=== PATIENT | female | born 1935 | race Caucasian/White ===

== ENCOUNTER 2018-07-05 13:06 | Emergency (ER) | payer MEDICARE ==
[~2018-07-05 13:06] MED LIST: ASPI-1441 PO; CALC-649 PO; CYAN50TA3 PO; IBUP-1487 PO; IRO150 PO; LEVO75TA68 PO; LOR5/325 PO; MULT1CAP41 PO; OMEG-96 PO; ROS10 PO; [UNRECOGNIZED DRUG - CODE] MC; [UNRECOGNIZED DRUG - CODE] PO
--- NOTE | 2018-07-05 13:12 | ER Report ---
History and Physical Time Seen By MD: 13:12 HPI/ROS CHIEF COMPLAINT: Shortness of breath, dizziness and vomiting HISTORY OF PRESENT ILLNESS: This is an 82-year-old female presents to the emergency department via [facility] for dizziness, shortness of breath and vomiting. Probably the patient's had some dizziness and vomiting early this morning, did go to the [facility] she had some shortness of breath apparently at the clinic as well they did some basic blood work, troponin which was negative, EKG dated the d-dimer as well, and according to the clinic it was positive. She was also given 325 mg aspirin. EMS was contacted and since going the patient was transported to our hospital for further evaluation. Patient arrives alert and oriented, denies shortness of breath, no chest pain, no dizziness, no nausea or vomiting. The patient's was on a cruise has been back in the [place] for approximately 6-7 weeks. She denies fevers or chills. She does not recall a past history of blood clots. No chest pain. No fevers. No rashes. No headaches. REVIEW OF SYSTEMS: Constitutional: No fever, no chills. Eyes: No discharge. ENT: No sore throat. Cardiovascular: No chest pain, no palpitations. Respiratory: As above. Gastrointestinal: As above. Genitourinary: No hematuria. Musculoskeletal: No back pain. Skin: No rashes. Neurological: As above. Allergies: Coded Allergies: No Known Drug Allergies (Verified , 06/14/08) Home Meds Reported Medications Tramadol Hcl (TRAMADOL HCL) 50 Mg Tablet, 50-100 MG PO Q4-6H, TAB 07/05/18 Ropinirole Hcl (ROPINIROLE HCL) 0.5 Mg Tablet, 0.5 MG PO QHS 07/05/18 Pravastatin Sodium (PRAVACHOL) 20 Mg Tablet, 20 MG PO QDAY, TAB 07/05/18 Melatonin/Pyridoxine Hcl (B6) (MELATONIN 1 MG TABLET) 1 Each Tablet, 1 EACH PO QHS 07/05/18 Aspirin (Aspirin Ec) 81 Mg Tablet.dr, 81 MG PO DAILY, 0 Refills 07/08/08 Calcium Carbonate/Vitamin D3 (Calcium + D 600 Mg Tablet) 1 Tab Tablet, 1 TAB PO DAILY, 0 Refills 07/08/08 Fish Oil/[place]-3 Fatty Acids ([place] 3 Fish Oil 1,000 Mg Cap) 1 Cap Capsule, 1 CAP PO DAILY, 0 Refills 07/08/08 Levothyroxine Sodium (Levothyroxine Sodium) 75 Mcg Tablet, 88 MCG PO DAILY, 0 R efills 07/08/08 Discontinued Reported Medications Rosuvastatin Calcium (Crestor) 10 Mg Tab, 10 MG PO QHS, 0 Refills 07/08/08 Polysaccharide Iron Complex (Niferex) 150 Mg Cap, 150 MG PO BIDBS, 0 Refills 07/08/08 Cyanocobalamin (Vitamin B12) 50 Mcg Tablet, 50 MCG PO DAILY, 0 Refills 07/08/08 Past Medical/Surgical History The patient has a past medical and surgical history of irregular heartbeat, pneumonia, osteopenia, arthritis, fractures, chronic C-spine pain, bunionectomies, right shoulder surgery, left wrist surgery, cataract removal. Reviewed Nurses Notes: Yes Hx Smoking: Yes (QUIT 25 YRS AGO, SMOKED 30 YRS 1PPD) Constitutional Vital Sign - Last 24 Hours 07/05/18 07/05/18 07/05/18 07/05/18 13:06 13:07 13:10 13:36 Temp 97.6 Pulse ??? 57 52 Resp 20 17 B/P (MAP) 176/85 (115) 176/85 Pulse Ox 97 94 O2 Delivery Room Air 07/05/18 07/05/18 07/05/18 07/05/18 13:47 14:06 14:29 15:00 Pulse 55 51 Resp 15 15 B/P (MAP) 130/70 (90) 141/66 (91) Pulse Ox 97 99 O2 Flow Rate 2.0 07/05/18 15:05 Pulse 52 Resp 10 Pulse Ox 98 Physical Exam General Appearance: The patient is alert, has no immediate need for airway protection and no signs of toxicity. Eyes: Pupils equal and round no pallor or injection. ENT, Mouth: Mucous membranes are moist. Respiratory: There are no retractions, lungs are clear to auscultation. Cardiovascular: Regular rate and rhythm, no murmurs, clicks or rubs. Gastrointestinal: Abdomen is soft and non tender, no masses, bowel sounds normal. Neurological: Alert and oriented 4. Moving all extremities. Following all commands. No focal neurologic deficits. Skin: Warm and dry, no rashes. Musculoskeletal: Neck is supple non tender. Extremities are nontender, nonswollen and have full range of motion. DIFFERENTIAL DIAGNOSIS: After history and physical exam differential diagnosis was considered for shortness of breath including but not limited to pulmonary infectious process, COPD, asthma, pulmonary embolus and congestive heart failure. Medical Decision Making Data Points Result Diagram: 07/05/18 1334 07/05/18 1334 Laboratory Hematology Test 07/05/18 13:34 Red Blood Count 4.93 M/uL (4.17-5.56) Mean Corpuscular Volume 79.9 fL (80.0-96.0) Mean Corpuscular Hemoglobin 25.4 pg (26.0-33.0) Mean Corpuscular Hemoglobin Concent 31.9 g/dL (32.0-36.0) Red Cell Distribution Width 16.2 % (11.5-14.5) Mean Platelet Volume 8.6 fL (7.2-11.1) Neutrophils (%) (Auto) 80.7 % (39.4-72.5) Lymphocytes (%) (Auto) 13.4 % (17.6-49.6) Monocytes (%) (Auto) 4.8 % (4.1-12.4) Eosinophils (%) (Auto) 0.6 % (0.4-6.7) Basophils (%) (Auto) 0.5 % (0.3-1.4) Nucleated RBC Relative Count (auto) 0.1 /100WBC Neutrophils # (Auto) 7.1 K/uL (2.0-7.4) Lymphocytes # (Auto) 1.2 K/uL (1.3-3.6) Monocytes # (Auto) 0.4 K/uL (0.3-1.0) Eosinophils # (Auto) 0.0 K/uL (0.0-0.5) Basophils # (Auto) 0.0 K/uL (0.0-0.1) Nucleated RBC Absolute Count (auto) 0.01 K/uL Peripheral Blood Smear No Y/N D-Dimer Quantitative (PE/DVT) 0.90 ug/ml (0-0.50) Sodium Level 137 mmol/L (137-145) Potassium Level 4.3 mmol/L (3.5-5.0) Chloride Level 101 mmol/L (98-107) Carbon Dioxide Level 25 mmol/L (22-31) Blood Urea Nitrogen 14 mg/dl (7-18) Creatinine 0.90 mg/dl (0.52-1.04) Glomerular Filtration Rate Calc 59.8 Random Glucose 87 mg/dl (75-110) Calcium Level 9.6 mg/dl (8.4-10.2) Total Bilirubin 0.6 mg/dl (0.2-1.3) Aspartate Amino Transf (AST/SGOT) 25 U/L (0-35) Alanine Aminotransferase (ALT/SGPT) 27 U/L (0-56) Alkaline Phosphatase 86 U/L (0-126) Troponin I < 0.012 ng/ml Total Protein 7.4 g/dl (6.3-8.2) Albumin 4.1 g/dl (3.5-5.0) Chemistry Test 07/05/18 13:34 White Blood Count 8.8 k/uL (4.5-11.0) Red Blood Count 4.93 M/uL (4.17-5.56) Hemoglobin 12.6 g/dL (12.0-16.0) Hematocrit 39.4 % (34.0-47.0) Mean Corpuscular Volume 79.9 fL (80.0-96.0) Mean Corpuscular Hemoglobin 25.4 pg (26.0-33.0) Mean Corpuscular Hemoglobin Concent 31.9 g/dL (32.0-36.0) Red Cell Distribution Width 16.2 % (11.5-14.5) Platelet Count 366 K/uL (150-450) Mean Platelet Volume 8.6 fL (7.2-11.1) Neutrophils (%) (Auto) 80.7 % (39.4-72.5) Lymphocytes (%) (Auto) 13.4 % (17.6-49.6) Monocytes (%) (Auto) 4.8 % (4.1-12.4) Eosinophils (%) (Auto) 0.6 % (0.4-6.7) Basophils (%) (Auto) 0.5 % (0.3-1.4) Nucleated RBC Relative Count (auto) 0.1 /100WBC Neutrophils # (Auto) 7.1 K/uL (2.0-7.4) Lymphocytes # (Auto) 1.2 K/uL (1.3-3.6) Monocytes # (Auto) 0.4 K/uL (0.3-1.0) Eosinophils # (Auto) 0.0 K/uL (0.0-0.5) Basophils # (Auto) 0.0 K/uL (0.0-0.1) Nucleated RBC Absolute Count (auto) 0.01 K/uL Peripheral Blood Smear No Y/N D-Dimer Quantitative (PE/DVT) 0.90 ug/ml (0-0.50) Glomerular Filtration Rate Calc 59.8 Calcium Level 9.6 mg/dl (8.4-10.2) Total Bilirubin 0.6 mg/dl (0.2-1.3) Aspartate Amino Transf (AST/SGOT) 25 U/L (0-35) Alanine Aminotransferase (ALT/SGPT) 27 U/L (0-56) Alkaline Phosphatase 86 U/L (0-126) Troponin I < 0.012 ng/ml Total Protein 7.4 g/dl (6.3-8.2) Albumin 4.1 g/dl (3.5-5.0) Coagulation Test 07/05/18 13:34 D-Dimer Quantitative (PE/DVT) 0.90 ug/ml EKG/Imaging EKG Interpretation 12 lead EKG: Time of EKG 1325. Rhythm: Sinus bradycardia, with 1st degree AV block, occasional PAC. [place]: normal QRS: normal ST segments: No ST depression or elevation identified. Inverted T-wave in V5 and V6. Imaging Location: [facility] Patient: Imelda Matthew : 1935 Visit/Account:[id number] [facility]: [facility] EXAMINATION: CTA of the chest with IV contrast HISTORY: Syncope. TECHNIQUE: Pulmonary embolus protocol - Thin axial CT images of the chest were obtained with IV contrast during maximal pulmonary arterial opacification. Reconstruction of the source data includes multiplanar 2D coronal and sagittal reconstructed images, and 3D coronal and sagittal MIP images. Water Quality Technician images have been stored on PACS. One of the following dose optimization techniques was utilized in the performance of this exam: Automated exposure control; adjustment of the mA and/or kV according to the patient's size; or use of an iterative reconstruction technique. Specific details can be referenced in the facility's radiology CT exam operational policy. Contrast: 75 mL of IV Isovue-370. COMPARISON: 06/14/2008. FINDINGS: Pulmonary arteries: The pulmonary arteries are well opacified, without suspicious filling defect. Heart, aorta, and great vessels: Normal caliber thoracic aorta. Vascular calcifications, including coronary artery calcifications. Normal heart size. No pericardial effusion. Lungs and pleura: Small calcified granulomas in both lungs. Mild emphysematous changes in the upper lungs, with mild subpleural fibrosis. Slight scarring or atelectasis in the lung bases. No suspicious focal consolidation. No pleural effusion or pneumothorax. The central airways are patent. Mediastinum and destini: Negative. Visualized upper abdomen: Unremarkable. Chest wall: Negative. Bones: Negative. IMPRESSION: 1. No evidence of pulmonary embolism. 2. No other acute findings in the chest. 3. Mild pulmonary emphysema. No suspicious focal consolidation. Report Dictated By: Adis Wilkerson MD at 07/05/2018 3:03 PM Report E-Signed By: Adis Wilkerson MD at 07/05/2018 3:15 PM [id number] ED Course/Re-evaluation Clinical Indication for ER IV: Hydration, IV Access ED Course The patient was admitted to room. A history physical obtained. Differential diagnoses were considered. An IV was started via EMS. Patient had normal saline and route from [facility],. A repeat CBC, CMP, d-dimer and troponin were obtained. Negative troponin. CBC unremarkable. Positive d-dimer at 0.90. I did review these results with the patient and her daughter, I did tell them that as this is positive as she did have shortness of breath earlier this morning that we should proceed with a CT of the chest looking for an embolus, they are in agreement with this. CT of the chest was negative for pulmonary emboli. I did review these results with the patient and her family. Patient remained pain-free, denied shortness of breath, no dizziness even upon ambulation, no nausea or vomiting while in the emergency department. With no other concerning findings and negative study I did tell the patient will be would go home at this time. I did tell the patient that the vomiting and dizziness could be secondary to gastroenteritis, she agreed, instructed to drink plenty of fluids, get plenty of rest and return to the ER for any other concerns or worsening symptoms. Decision to Disposition Date: Jul 05, 2018 Decision to Disposition Time: 15:27 Depart Departure Latest Vital Signs Vital Signs Date Time Temp Pulse Resp B/P (MAP) Pulse Ox O2 Delivery O2 Flow Rate FiO2 07/05/18 15:05 52 10 98 07/05/18 15:00 141/66 (91) 07/05/18 13:47 2.0 07/05/18 13:10 97.6 Room Air Impression: Primary Impression: Dizziness Additional Impression: Vomiting Condition: Improved Disposition: HOME OR SELF-CARE Referrals: ANN MARIE SCHMITT MD (PCP) Patient Instructions: Acute Nausea and Vomiting (ED), Dizziness (ED) Additional Instructions: There is no evidence of a clot in your lungs today. No other concerning findings that would potentially from going home today. Please increase your water intake. Continue taking your regular medications. Get plenty of rest. Return to the emergency department for any acute concerns or worsening symptoms. Problem Qualifiers Additional Impression: Vomiting Vomiting type: unspecified Vomiting Intractability: non-intractable Nausea presence: unspecified Qualified Codes: R11.10 - Vomiting, unspecified SAVANNA CHINO PEANUT GRADER-BC Jul 05, 2018 13:12
[2018-07-05] MEDS ORDERED: PRAV20TA65 PO (13:22)
[2018-07-05] MEDS ORDERED: MELA1TAB24 PO (13:22)
[2018-07-05] MEDS ORDERED: TRAM-420 PO (13:22)
[2018-07-05] MEDS ORDERED: ROPI0.5T25 PO (13:22)
[2018-07-05] MEDS ORDERED: EMS NS 0.9%(*) 1000 ML BAG 1,000 ML IV ONE (13:30)
[2018-07-05 14:00] LABS: PLATELET COUNT, AUTOMATED 366 K/uL (150-450)
--- NOTE | 2018-07-05 14:02 | EKG ---
[place] [facility] [place] NAME: ASHLEY MIRANDA : [id number] MR: [id number] V: [id number] EXAM DATE: ORDERING PHYSICIAN: SAVANNA CHINO TECHNOLOGIST: Test Reason : Blood Pressure : / mmHG Vent. Rate : 054 BPM Atrial Rate : 054 BPM P-R Int : 218 ms QRS Dur : 086 ms QT Int : 440 ms P-R-T Axes : 049 -02 010 degrees QTc Int : 417 ms Sinus bradycardia with premature atrial complexes Otherwise normal ECG No previous ECGs available Confirmed by BLANCA BARRON ([id number]) on 07/05/2018 2:19:32 PM Referred By: Confirmed By:BLANCA BARRON
[2018-07-05] MEDS ORDERED: NS(*) 0.9% 50 ML BAG 50 ML ONE (14:37)
[2018-07-05] MEDS ORDERED: IOPAMIDOL 76% 75 ML INFUS BTL 75 ML ONE (14:37)
[2018-07-05 15:00] VITALS: BP 141/66
--- NOTE | 2018-07-05 15:20 | RADIOLOGY IMAGING REPORT ---
FACILITY: [facility] PATIENT NAME: Imelda Matthew : 1935 MR: [id number] V: [id number] EXAM DATE: ORDERING PHYSICIAN: SAVANNA CHINO TECHNOLOGIST: Location: [facility] [place] Patient: Imelda Matthew : 1935 Visit/Account:[id number] Date of [place]: 07/05/2018 EXAMINATION: CTA of the chest with IV contrast HISTORY: Syncope. TECHNIQUE: Pulmonary embolus protocol - Thin axial CT images of the chest were obtained with IV con trast during maximal pulmonary arterial opacification. Reconstruction of the source data includes mul tiplanar 2D coronal and sagittal reconstructed images, and 3D coronal and sagittal MIP images. Repres entative images have been stored on PACS. One of the following dose optimization techniques was utilized in the performance of this exam: Autom ated exposure control; adjustment of the mA and/or kV according to the patient's size; or use of an i terative reconstruction technique. Specific details can be referenced in the facility's radiology C T exam operational policy. Contrast: 75 mL of IV Isovue-370. COMPARISON: 06/14/2008. FINDINGS: Pulmonary arteries: The pulmonary arteries are well opacified, without suspicious filling defect. Heart, aorta, and great vessels: Normal caliber thoracic aorta. Vascular calcifications, including c oronary artery calcifications. Normal heart size. No pericardial effusion. Lungs and pleura: Small calcified granulomas in both lungs. Mild emphysematous changes in the upper lungs, with mild subpleural fibrosis. Slight scarring or atelectasis in the lung bases. No suspicious focal consolidation. No pleural effusion or pneumothorax. The central airways are patent. Mediastinum and destini: Negative. Visualized upper abdomen: Unremarkable. Chest wall: Negative. Bones: Negative. IMPRESSION: 1. No evidence of pulmonary embolism. 2. No other acute findings in the chest. 3. Mild pulmonary emphysema. No suspicious focal consolidation. Report Dictated By: Adis Wilkerson MD at 07/05/2018 3:03 PM Report E-Signed By: Adis Wilkerson MD at 07/05/2018 3:15 PM [id number]
== END 2018-07-05 15:46 | disposition home or self-care (01) ==
LOC: ER 13:26
DX: R11.10 Vomiting, unspecified (principal); R42 Dizziness and giddiness
CPT/HCPCS: 36415; 71275; 84484; 85025; 85379; 93005; 96360; 96361; 99284; J7050; Q9967; 82040; 82247; 82310; 82374; 82435; 82565; 82947; 84075; 84132; 84155; 84295; 84450; 84460; 84520